=== PATIENT | female | born 1955 | race Caucasian/White ===

== ENCOUNTER → 2021-05-15 | Outpatient (CLI) | payer MEDICARE, OTHER ==
--- NOTE | 2021-05-15 09:44 | Diagnostic Imaging Report ---
INDICATION: Pain and stiffness to the right knee. TIME OF EXAM: 9:11 AM FINDINGS: 3 views of the right knee demonstrate tricompartmental degenerative changes, most marked involving the lateral and patellofemoral compartments where there is significant joint space narrowing and marginal spurring. No fracture, dislocation or effusion is seen. IMPRESSION: Severe degenerative changes, as described. No acute bony abnormality is detected. Dictated by: Dictated on workstation # [id number]
--- NOTE | 2021-05-15 09:45 | Diagnostic Imaging Report ---
INDICATION: Pain and stiffness of the left knee. TIME OF EXAM: 9:14 AM FINDINGS: 3 views of the left knee demonstrate tricompartmental degenerative changes, most marked involving the medial compartment where there is moderate joint space narrowing. There is spurring on the tibial spines. No fracture, dislocation or effusion is seen. IMPRESSION: Degenerative changes. No acute bony abnormality is detected. Dictated by: Dictated on workstation # [id number]
== END ==
LOC: RAD FS 08:57
PROVIDERS: ATTEND Nurse Practitioner
DX: M17.0 Bilateral primary osteoarthritis of knee (principal)
CPT/HCPCS: 73562